=== PATIENT | female | born 1985 | race Caucasian/White ===

== ENCOUNTER 2024-06-04 11:30 | Inpatient (IN) | payer OTHER ==
[2024-06-04 11:46] VITALS: BMI 21.9
[2024-06-04] MEDS ORDERED: DICYCLOMINE HCL 10 MG CAPSULE PO PRN (11:59)
[2024-06-04] MEDS ORDERED: ACETAMINOPHEN 325 MG TABLET (FP) PO PRN (11:59)
[2024-06-04] MEDS ORDERED: NICOTINE POLACRILEX 2 MG LOZENGE BC PRN (11:59)
[2024-06-04] MEDS ORDERED: IBUPROFEN 400 MG TABLET (FP) PO PRN (11:59)
[2024-06-04] MEDS ORDERED: MAGNESIUM HYDROX 2400MG/30ML ORAL SUSPENSION 30 ML CUP PO PRN (11:59)
[2024-06-04] MEDS ORDERED: LOPERAMIDE HCL 2 MG CAPSULE PO PRN (11:59)
[2024-06-04] MEDS ORDERED: POLYETHYLENE GLYCOL (HEALTHYLAX) 3350 17 GM PACKET PO PRN (11:59)
[2024-06-04] MEDS ORDERED: NALOXONE HCL 0.4 MG/ML VIAL IM PRN (11:59)
[2024-06-04] MEDS ORDERED: MAG HYDROX/AL HYDROX/SIMETH 30 ML UNIT-DOSE CUP PO PRN (11:59)
[2024-06-04] MEDS ORDERED: BENZOCAINE/MENTHOL (CHLORASEPTIC ) LOZENGE MM PRN (11:59)
[2024-06-04] MEDS ORDERED: NALOXONE (NARCAN) HCL 4 MG/0.1 ML SPRAY NS PRN (11:59)
[2024-06-04] MEDS ORDERED: BISMUTH SUBSALICYLATE 524 MG/30 ML PO PRN (11:59)
[2024-06-04] MEDS ORDERED: BENZONATATE 200 MG CAPSULE PO PRN (11:59)
[2024-06-04] MEDS ORDERED: guaiFENesin 600 MG TABLET.ER (FP) PO PRN (11:59)
[2024-06-04] MEDS ORDERED: NICOTINE 7 MG/24 HOURS TOPICAL PATCH TD ONE (12:56)
[2024-06-04] MEDS ORDERED: cloNIDine HCL 0.1 MG TABLET ONE (12:56)
[2024-06-04] MEDS ORDERED: methaDONE HCL 10 MG TABLET (FOR DETOX USE ONLY) ONE (12:56)
[2024-06-04] MEDS: NICOTINE 7 MG/24 HOURS TOPICAL PATCH TD SCH (13:08)
[2024-06-04] MEDS: methaDONE 40 MG, methaDONE 30 MG PO ONE (13:09)
[2024-06-04] MEDS: cloNIDine HCL 0.1 MG TABLET PO SCH (13:10)
[2024-06-04] MEDS: METHOCARBAMOL 500 MG TABLET PO PRN (14:05)
[2024-06-04] MEDS: hydrOXYzine PAMOATE 25 MG CAPSULE (FP) PO PRN (14:05)
[2024-06-04 17:14] LABS: HIV INTERPRETATION NEGATIVE (NEGATIVE)
[2024-06-04] MEDS: ONDANSETRON *ODT* 4 MG TABLET SL PRN (17:30)
[2024-06-04] MEDS ORDERED: MELATONIN 5 MG TABLETS PO SCH (22:00)
[2024-06-04] MEDS: THIAMINE 100 MG TABLET PO SCH (22:25)
[2024-06-04] MEDS: SUVOREXANT 10 MG TABLET PO PRN (22:25)
[2024-06-05] MEDS: PRENATAL VITAMINS W/ FOLIC ACID TABLET (FP) PO SCH (09:42)
[2024-06-05] MEDS: BUPRENORPHINE/NALOXONE 0.5 MG/0.125 MG FILM SL ONE ×2 (09:46→22:55)
[2024-06-05] MEDS: methaDONE 40 MG, methaDONE 20 MG PO ONE (09:46)
[2024-06-05] MEDS: NICOTINE POLACRILEX 2 MG GUM BUC PRN (17:56)
[2024-06-06] MEDS ORDERED: cloNIDine HCL 0.1 MG TABLET PO PRN (00:01)
[2024-06-06] MEDS: BUPRENORPHINE/NALOXONE 0.5 MG/0.125 MG FILM SL SCH (09:09)
[2024-06-06] MEDS: methaDONE 40 MG, methaDONE 10 MG PO ONE (09:10)
[2024-06-06] MEDS: hydrOXYzine PAMOATE 25 MG CAPSULE (FP) PO SCH (09:55)
[2024-06-06] MEDS: IBUPROFEN 600 MG TABLET (FP) PO PRN (21:55)
[2024-06-07] MEDS: BUPRENORPHINE/NALOXONE 2 MG/0.5 MG FILM PACKET SL SCH (09:52)
[2024-06-07] MEDS: clonazePAM 0.5 MG ODT TABLETS SL SCH (09:52)
[2024-06-07] MEDS: methaDONE HCL 40 MG DISPERSABLE TABLET PO ONE (09:52)
[2024-06-07] MEDS: SUVOREXANT 10 MG TABLET PO PRN (22:11)
[2024-06-08 07:46] VITALS: BP 103/59; PULSE 62; RESP 16; TEMP 97.7
[2024-06-08] MEDS: BUPRENORPHINE/NALOXONE 4 MG/1 MG FILM PACKET SL SCH (09:13)
[2024-06-08] MEDS: methaDONE HCL 10 MG TABLET PO ONE (09:13)
[2024-06-09] MEDS ORDERED: BUPRENORPHINE/NALOXONE 8 MG/2 MG FILM PACKET SL SCH (10:00)
[2024-06-09] MEDS ORDERED: methaDONE HCL 10 MG TABLET PO ONE (10:00)
[2024-06-10] MEDS ORDERED: methaDONE HCL 10 MG TABLET PO ONE (10:00)
[2024-06-10] MEDS ORDERED: BUPRENORPHINE/NALOXONE 8 MG/2 MG FILM PACKET SL ONE (10:00)
[2024-06-10] MEDS ORDERED: clonazePAM 0.5 MG ODT TABLETS SL SCH (10:00)
== END 2024-06-08 11:22 | disposition home or self-care (01) | DRG 773 ==
LOC: YASAS 11:30 → Y6N 12:17
PROVIDERS: ADMIT Allergy & Immunology; ATTEND Surgery
PROC: HZ2ZZZZ Detoxification Services for Substance Abuse Treatment (ICD-10-PCS; principal; 2024-06-04)
DX: F11.23 Opioid dependence with withdrawal (principal); F17.210 Nicotine dependence, cigarettes, uncomplicated; F19.282 Other psychoactive substance dependence with psychoactive substance-induced sleep disorder; F19.280 Other psychoactive substance dependence with psychoactive substance-induced anxiety disorder; F32.9 Major depressive disorder, single episode, unspecified; F41.9 Anxiety disorder, unspecified; Z88.0 Allergy status to penicillin; Z88.2 Allergy status to sulfonamides
CPT/HCPCS: 36415; 80305; 80307; 81025; 86803; 87389; 93005; 93010; Q0162